=== PATIENT | male | born 1980 | race Caucasian/White ===

== ENCOUNTER 2017-09-16 12:28 | Emergency (ER) ==
[2017-09-16 12:44] VITALS: BP 137/87; TEMP 98.1; BMI 42.4
--- NOTE | 2017-09-16 13:55 | CT ---
EXAM: CT of the abdomen pelvis without contrast History: Diarrhea and abdominal pain, urinary tract infection. Comparison: CT abdomen pelvis 11/01/2013 Technique: Multiplanar CT images through the abdomen pelvis were obtained through the abdomen pelvis without the administration of IV contrast. Findings: 1 cm pleural based nodule within the left lower lobe. No acute osseous abnormalities. Sev ere degenerate changes of bilateral hip joints. Postsurgical changes of the spine again noted. Stab le chronic compression deformity at L3. Calcification seen within the lumbar spinal canal and there is suspected severe stenosis at multiple levels. Bilateral nephrolithiasis with largest stone on the right measuring 9 mm in largest conglomerate of s tones on the left measuring 1.4 cm. There is mild to moderate in the chronic hydronephrosis of the le ft kidney. No ureteral calculi. Vanegas catheter within the decompressed bladder. No discrete gallst ones identified by CT. No focal liver or splenic lesions. Atherosclerotic vascular calcifications. No peripancreatic inflammation. Adrenal glands are unremarkable. No bowel obstruction. The append ix is normal. Mild to moderate colonic stool. There is no obvious bowel wall thickening or adjacent inflammation. No free air and no ascites. 7.4 cm x 4.4 cm area of inflammation and phlegmonous change within the subcutaneous soft tissues of t he right buttock. Impression: 1. Mild to moderate chronic left hydronephrosis with no obstructing ureteral calculi identified. 2. Bilateral nephrolithiasis. 3. Vanegas catheter within the decompressed bladder. 4. No evidence for colitis and no bowel obstruction. 5. Scattered colonic stool. 6. Large area of inflammation and phlegmonous change within the subcutaneous soft tissues of the rig ht buttock consistent with infection. 6. Calcification within the lumbar spinal canal with severe spinal stenosis. 7. 1 cm left lower lobe pleural-based nodule could represent a focus of atelectasis or inflammation but cannot exclude a true lung nodule. Recommend follow-up chest CT in 3-6 months.
--- NOTE | 2017-09-16 14:31 | ED.PDOC ---
General ED Provider: Dr. PITA SHELLEY Chief Complaint: Diarrhea Stated Complaint: DIARRHEA AND WOUND OF THE RIGHT BUTTOCKS Time Seen by Physician: 12:43 (SEEN WITH STAFF) Mode of Arrival: Wheelchair Information Source: Patient Exam Limitations: No limitations Referred to ED by: Other (PT ALSO REPORTED OF ) Nursing and Triage Documentation Reviewed and Agree: Yes Does patient meet sepsis criteria?: Yes If yes, has appropriate treatment been initiated?: No System Inflammatory Response Syndrome: Not Applicable Sepsis Protocol: For patient's 13 years and over: Temp is 96.8 and below OR 101 and greater Pulse >90 BPM Resp >20/minute Acutely Altered Mental Status Are patient's symptoms suggestive of a new infection, such as: -Pneumonia -Skin, Soft Tissue -Endocarditis -UTI -Bone, Joint Infection -Implantable Device -Acute Abdominal Infection -Wound Infection -Meningitis -Blood Stream Catheter Infection -Unknown Skin Complaint Exam - Skin/Soft Tissue Complaint/Exam Onset/Duration: CHRONIC DIARRHEA , X MONTHS WAS ON C DIFF MEDS BUT PT STOPPED THEM Symptoms Are: Still present Timing: Intermittent Review of Systems - Review Of Systems Constitutional: Reports: No symptoms Eyes: Reports: No symptoms Ears, Nose, Mouth, Throat: Reports: No symptoms Respiratory: Reports: No symptoms Cardiac: Reports: No symptoms GI: Reports: Diarrhea, Rectal bleeding (IN THE PAST SMALL AMOUNT) : Reports: No symptoms Musculoskeletal: Reports: No symptoms Skin: Reports: No symptoms Neurological: Reports: No symptoms Endocrine: Reports: No symptoms Hematologic/Lymphatic: Reports: No symptoms All Other Systems: Reviewed and Negative Past Medical History - Past Medical History Previously Healthy: Yes Endocrine: Reports: None Cardiovascular: Reports: None Respiratory: Reports: None Hematological: Reports: None Gastrointestinal: Reports: Other (C DIFF POSTIVE IN THE PAST) Genitourinary: Reports: None Neuro/Psych: Reports: None Musculoskeletal: Reports: None Cancer: Reports: None - Surgical History General Surgical History: Reports: None - Family History Family History: Reports: None - Social History Smoking Status: Current every day smoker Hx Substance Use: No Alcohol Screening: None - Immunizations Tetanus Shot up to Date: Yes Physical Exam - Physical Exam Appearance: Well-appearing, No pain distress, Well-nourished Eyes: NISA, EOMI, Conjunctiva clear ENT: Ears normal, Nose normal, Oropharynx normal Respiratory: Airway patent, Breath sounds clear, Breath sounds equal, Respirations nonlabored Cardiovascular: RRR, Pulses normal, No rub, No murmur GI/: Soft, Nontender, No masses, Bowel sounds normal, No Organomegaly Musculoskeletal: Normal strength, ROM intact, No edema, No calf tenderness Skin: Warm, Dry (RASH AND 1CM ULCER RIGHT BUTTOCKS TENDER TO PALPATION) Neurological: Sensation intact, Motor intact, Reflexes intact, Cranial nerves intact, Alert, Oriented Psychiatric: Affect appropriate, Mood appropriate Interpretation - Radiology Interpretation Radiology Interpretation By: Radiologist Radiology Results: Positive (ABSCESS RIGHT BUTTOCKS) Physician Notification - Case Discussed Physician Notified: MERARY SERRANO Time of Notification: 14:35 Critical Care Note - Critical Care Note Total Time (mins): 0 Course - Course Hematology/Chemistry: 09/16/17 13:16 09/16/17 13:16 Orders, Labs, Meds: Lab Review 09/16/17 09/16/17 13:16 13:16 WBC 8.89 RBC 5.40 Hgb 15.9 Hct 46.9 MCV 86.9 MCH 29.4 MCHC 33.9 RDW Coeff of Micha 13.3 Plt Count 176 Immature Gran % (Auto) 0.2 Neut % (Auto) 70.5 Lymph % (Auto) 17.9 Nelson % (Auto) 10.0 Eos % (Auto) 1.0 Baso % (Auto) 0.4 Immature Gran # (Auto) 0.0 Neut # (Auto) 6.3 Lymph # (Auto) 1.6 Nelson # (Auto) 0.9 Eos # (Auto) 0.1 Baso # (Auto) 0.0 Sodium 137 Potassium 3.4 L Chloride 105 Carbon Dioxide 21 Anion Gap 14.4 BUN 8 Creatinine 0.75 Estimated GFR (MDRD) 119.00 BUN/Creatinine Ratio 10.66 Glucose 86 Calcium 9.1 Total Bilirubin 0.8 AST 16 ALT 13 Alkaline Phosphatase 61 Total Protein 6.5 Albumin 3.0 L Globulin 3.5 Albumin/Globulin Ratio 0.86 Orders Category Date Time Status C-DIFF MONITORING (NURSING) BID CARE 09/16/17 13:06 Active CBC W/ AUTO DIFF Stat LAB 09/16/17 13:16 Completed COMPREHENSIVE METABOLIC PANEL Stat LAB 09/16/17 13:16 Completed OCCULT BLOOD, STOOL Stat LAB 09/16/17 14:33 Uncollected c-diff [C. DIFFICILE] Routine LAB 09/16/17 13:[address] ABDOMEN/PELVIS WO CONTRAST Stat RADS 09/16/17 13:07 Completed Vital Signs: Temp Pulse Resp BP Pulse Ox 09/16/17 12:32 98.1 F 81 16 137/87 95 Departure - Departure Time of Disposition: 14:35 Disposition: TSF SHORT-TRM HOSP Discharge Problem: Diarrhea, Abscess of right buttock Instructions: Abscess (ED) Condition: Good Pt referred to PMD for follow-up: Yes IPMP verified?: No Additional Instructions: Please call your Family Physician as soon as possible to schedule a follow-up appointment. Allergies/Adverse Reactions: Allergies codeine Adverse Reaction (Verified 09/16/17 12:50) paroxetine HCl [From Paxil] Adverse Reaction (Verified 09/16/17 12:50) Home Medications: Ambulatory Orders Ibuprofen 400 mg PO Q4H PRN 11/01/13 Disposition Discussed With: Patient
== END 2017-09-16 14:47 | disposition short-term general hospital (02) ==
LOC: ED 12:28
DX: R19.7 Diarrhea, unspecified (principal); L02.31 Cutaneous abscess of buttock; F17.210 Nicotine dependence, cigarettes, uncomplicated
CPT/HCPCS: 36415; 80053; 82272; 85025; 87493; 99285

== ENCOUNTER 2017-09-27 21:59 | Inpatient (IN) ==
[2017-09-27] MEDS ORDERED: TORADOL IVP STA (22:43)
[2017-09-27] MEDS ORDERED: ZOFRAN 4 MG/2 ML IVP STA (22:43)
[2017-09-27] MEDS ORDERED: LEVAQUIN 500 MG in PREMIX 100 ML D5W 1 BAG IV STA (23:01)
--- NOTE | 2017-09-27 23:04 | ED.PDOC ---
General ED Provider: Dr. ALON CAMPA Chief Complaint: Scrotal Pain Stated Complaint: Patient states he has had right testicular swelling and pain for the past few days pain is worse today. Feels like he has been kicked, He is Parapleagic with BKA. He has chronic wounds and takes flagel for it. Time Seen by Physician: 22:20 Mode of Arrival: Wheelchair Information Source: Patient Exam Limitations: No limitations Nursing and Triage Documentation Reviewed and Agree: Yes Does patient meet sepsis criteria?: No If yes, has appropriate treatment been initiated?: No System Inflammatory Response Syndrome: Not Applicable Sepsis Protocol: For patient's 13 years and over: Temp is 96.8 and below OR 101 and greater Pulse >90 BPM Resp >20/minute Acutely Altered Mental Status Are patient's symptoms suggestive of a new infection, such as: -Pneumonia -Skin, Soft Tissue -Endocarditis -UTI -Bone, Joint Infection -Implantable Device -Acute Abdominal Infection -Wound Infection -Meningitis -Blood Stream Catheter Infection -Unknown Complaint Exam - Complaint/Exam Patient Complains of: Reports: Scrotal pain, Scrotal swelling, Groin pain Onset/Duration: 2 days ago Symptoms Are: Still present Timing: Constant Initial Severity: Moderate Current Severity: Severe Location of Pain: Reports: Right, Scrotum, Testicle Character: Reports: Sharp, Constant pressure, Cramping, Tearing Aggravating: Reports: None Alleviating: Reports: None Associated Signs and Symptoms: Reports: Nausea, Vomiting Last Voided: has a chronic medeiros catheter Testicular Torsion Risk Factors: Reports: None Surgical Obstruction Risk Factors: Reports: None Related Surgical History: Reports: None Abdominal Findings: Present: None Genitalia Exam: Present: Testes asymmetrical, Testes tender (on the right ), Scrotal swelling Differential Diagnoses: Epididymitis, Prostatitis, UTI Review of Systems - Review Of Systems Constitutional: Reports: Loss of appetite Ears, Nose, Mouth, Throat: Reports: No symptoms Respiratory: Reports: No symptoms Cardiac: Reports: No symptoms GI: Reports: Nausea, Vomiting : Reports: Other (scrotal pain ) Neurological: Reports: Anxiety All Other Systems: Reviewed and Negative Past Medical History - Past Medical History Previously Healthy: Yes Endocrine: Reports: None Cardiovascular: Reports: None Respiratory: Reports: None Hematological: Reports: None Gastrointestinal: Reports: GERD, Other (C DIFF POSTIVE IN THE PAST) Genitourinary: Reports: Kidney stones Neuro/Psych: Reports: None Musculoskeletal: Reports: None Cancer: Reports: None Other Pertinent Past Medical History: osteopenia, Osteoporosis, Neurogenic bladder with chronic indwelling cath - Surgical History General Surgical History: Reports: Orthopedic (Bilateral AKA, left hip), Back Surgery, Other (Skin grafts ) - Family History Family History: Reports: None - Social History Smoking Status: Current every day smoker Hx Substance Use: No Alcohol Screening: None - Immunizations Tetanus Shot up to Date: Yes Physical Exam - Physical Exam Appearance: Ill-appearing Ill-appearing: Moderate Pain Distress: Severe Neck: Supple Respiratory: Airway patent, Breath sounds clear, Breath sounds equal, Respirations nonlabored Cardiovascular: RRR, Pulses normal, No rub, No murmur GI/: Soft, No masses, Bowel sounds normal, No Organomegaly, Tender (right scrotum ) Musculoskeletal: Normal strength, ROM intact, No edema, No calf tenderness Skin: Warm, Dry, Normal color Neurological: Sensation intact, Motor intact, Reflexes intact Psychiatric: Anxious Re-Evaluation - Re-Evaluation Time of Re-Evaluation: 00:26 Status: Improved (only slightly ) Pain Level: 7/10 Physician Notification - Case Discussed Physician Notified: Dr Collazo Time of Notification: 00:27 (ok to admit with pain medications and antibiotics. Order US for AM) Critical Care Note - Critical Care Note Total Time (mins): 0 Course - Course Orders, Labs, Meds: Lab Review 09/27/17 23:28 Urine Color Yellow Urine Clarity Cloudy Urine pH 6.5 Ur Specific [place] 1.010 Urine Protein 1+ Urine Glucose (UA) Negative Urine Ketones Trace Urine Blood 1+ Urine Nitrite Positive Urine Bilirubin Negative Urine Urobilinogen 0.2 Ur Leukocyte Esterase 2+ Urine Microscopic RBC 5-10 Urine Microscopic WBC 30-50 Ur Squamous Epith Cells 5-10 Urine Bacteria 2+ Urine Mucus 1+ Orders Category Date Time Status ACTIVITY .BR with BRP CARE 09/28/17 00:05 Active CATHETER INSERTION AND CARE Q8HR CARE 09/28/17 00:05 Active INCISION/WOUND CARE Q12HR CARE 09/28/17 00:05 Active INTAKE & OUTPUT Q8HR CARE 09/28/17 00:05 Active REMINDER: Ask MD to d/c medeiros DAILY CARE 09/28/17 00:14 Active VITAL SIGNS Q4HR CARE 09/28/17 00:05 Active REGULAR DIET DIETARY 09/28/17 Breakfast Ordered ED IV/MEDIPORT/POWERPORT .ONCE EMERGENCY 09/27/17 22:43 Active CBC W/ AUTO DIFF DAILY@0600 LAB 09/28/17 06:00 Ordered CBC W/ AUTO DIFF DAILY@0600 LAB 09/29/17 06:00 Ordered CBC W/ AUTO DIFF Stat LAB 09/28/17 00:05 Ordered COMPREHENSIVE METABOLIC PANEL Stat LAB 09/28/17 00:05 Ordered URINALYSIS C & S IF INDICATED Stat LAB 09/27/17 23:28 Completed URINE CULTURE Stat LAB 09/27/17 23:28 Received 0.9 % Sodium Chloride [Saline Flush] MEDS 09/27/17 22:43 Ordered 1 syr IVF PRN PRN Acetaminophen [Tylenol] MEDS 09/28/17 00:05 Ordered 650 mg PO Q4H PRN Hydromorphone HCl/Pf [Dilaudid 2 mg/ml Syringe] MEDS 09/28/17 00:05 Ordered 1 mg IVP Q4H PRN Hydromorphone HCl/Pf [Dilaudid 2 mg/ml Syringe] MEDS 09/27/17 23:09 Discontinued 1.5 mg IVP ONCE STA Ibuprofen [Motrin] MEDS 09/28/17 00:19 Ordered 600 mg PO Q8H PRN Ketorolac Tromethamine [Toradol] MEDS 09/27/17 22:43 Discontinued 30 mg IVP ONCE STA Levofloxacin/D5w [Levaquin] 100 ml MEDS 09/27/17 23:05 Discontinued IV .STK-MED Levofloxacin/D5w [Levaquin] 500 mg MEDS 09/28/17 09:00 Ordered Premix 100 ml D5w 1 bag IV DAILY Levofloxacin/D5w [Levaquin] 500 mg MEDS 09/27/17 23:01 Discontinued Premix 100 ml D5w 1 bag IV ONCE Meperidine HCl/Pf [Demerol 25 mg/ml Vial] MEDS 09/28/17 00:17 Discontinued 25 mg .ROUTE .STK-MED ONE Meperidine HCl/Pf [Demerol 25 mg/ml Vial] MEDS 09/28/17 00:05 Discontinued 25 mg IVP ONCE STA Metronidazole [Flagyl] MEDS 09/28/17 09:00 Ordered 250 mg PO QID Ondansetron HCl/Pf [Zofran 4 mg/2 ml] MEDS 09/27/17 22:43 Discontinued 4 mg IVP ONCE STA Ondansetron HCl/Pf [Zofran 4 mg/2 ml] MEDS 09/28/17 00:05 Ordered 4 mg IVP Q6H PRN Oxycodone-Acetaminophen 5-325 [Percocet 5-325] MEDS 09/28/17 00:05 Ordered 1 tab PO Q6H PRN Potassium Chloride in 0.9%NaCl [Sodium Chloride 0.9%- MEDS 09/28/17 00:30 Ordered KCl 20 Meq] 1,000 ml IV 125 mls/hr Promethazine HCl [Phenergan 25 mg/ml Vial] MEDS 09/28/17 00:06 Discontinued 25 mg .ROUTE .STK-MED ONE Promethazine HCl [Phenergan 25 mg/ml Vial] 25 mg MEDS 09/28/17 00:04 Active 0.9 % Sodium Chloride [Sodium Chloride] 50 ml IV ONCE RESUSCITATION STATUS Routine OTHERS 09/28/17 00:05 Ordered U/S SCROTUM Stat RADS 09/28/17 00:25 Ordered Medications Generic Name Dose Route Start Last Admin Trade Name Freq PRN Reason Stop Dose Admin Acetaminophen 650 mg 09/28/17 00:05 Tylenol PO Q4H PRN Mild pain Hydromorphone HCl 1 mg 09/28/17 00:05 Dilaudid 2 Mg/Ml Syringe IVP Q4H PRN Severe Pain Promethazine HCl 25 mg/ Sodium 51 mls @ 75 mls/hr 09/28/17 00:04 09/28/17 00: 23 Chloride IV 09/28/17 00:44 75 mls/hr ONCE STA Administration Potassium Chloride/Sodium Chloride 1,000 mls @ 125 mls/hr 09/28/17 00:30 Sodium Chloride 0.9%-Kcl 20 Meq IV .Q8H AUBRIE Levofloxacin/Dextrose 500 mg/ 100 mls @ 100 mls/hr 09/28/17 09:00 Dextrose IV DAILY AUBRIE Ibuprofen 600 mg 09/28/17 00:19 Motrin PO Q8H PRN Mild Pain Non-Formulary Medication 250 mg 09/28/17 09:00 Metronidazole [Flagyl] PO QID AUBRIE Ondansetron HCl 4 mg 09/28/17 00:05 Zofran 4 Mg/2 Ml IVP Q6H PRN Nausea / Vomiting Oxycodone/Acetaminophen 1 tab 09/28/17 00:05 Percocet 5-325 PO Q6H PRN Moderate pain. Sodium Chloride 1 syr 09/27/17 22:43 Saline Flush IVF PRN PRN To flush IV Discontinued Medications Generic Name Dose Route Start Last Admin Trade Name Freq PRN Reason Stop Dose Admin Hydromorphone HCl 1.5 mg 09/27/17 23:09 09/27/17 23:13 Dilaudid 2 Mg/Ml Syringe IVP 09/27/17 23:10 1.5 mg ONCE STA Administration Levofloxacin/Dextrose 500 mg/ 100 mls @ 100 mls/hr 09/27/17 23:01 09/27/17 23 :11 Dextrose IV 09/28/17 00:00 100 mls/hr ONCE STA Administration Ketorolac Tromethamine 30 mg 09/27/17 22:43 09/27/17 22:59 Toradol IVP 09/27/17 22:44 30 mg ONCE STA Administration Meperidine HCl 25 mg 09/28/17 00:05 09/28/17 00:23 Demerol 25 Mg/Ml Vial IVP 09/28/17 00:06 25 mg ONCE STA Administration Ondansetron HCl 4 mg 09/27/17 22:43 09/27/17 22:59 Zofran 4 Mg/2 Ml IVP 09/27/17 22:44 4 mg ONCE STA Administration Vital Signs: Temp Pulse Resp BP Pulse Ox 09/27/17 22:00 99 F 88 20 139/75 97 Departure - Departure Time of Disposition: 00:02 Disposition: HOME SELF-CARE Discharge Problem: Acute epididymitis, UTI (urinary tract infection), bacterial Instructions: Epididymo-Orchitis (ED), Testicle Pain (ED) Condition: Stable Pt referred to PMD for follow-up: Yes IPMP verified?: No Additional Instructions: Take medications as prescribed Follow up with PCP in 3 days Prescriptions: Hydrocodone/Acetaminophen [Rolfe 5-325 Tablet] 1 tab PO Q6HR PRN #15 tablet PRN Reason: PAIN Levofloxacin [Levaquin] 500 mg PO DAILY #10 tablet Allergies/Adverse Reactions: Allergies codeine Adverse Reaction (Verified 09/27/17 22:11) Hives paroxetine HCl [From Paxil] Adverse Reaction (Verified 09/27/17 22:11) Difficulty Swallowing UNABLE TO ANSWER/ARMS DRAW IN/UNABLE TO SWALLOW Home Medications: Ambulatory Orders Ibuprofen 400 mg PO Q4H PRN 11/01/13 Hydrocodone/Acetaminophen [Rolfe 5-325 Tablet] 1 tab PO Q6HR PRN #15 tablet Levofloxacin [Levaquin] 500 mg PO DAILY #10 tablet 09/27/17 Metronidazole [Flagyl] 250 mg PO QID 09/27/17 Oxycodone-Acetaminophen 10-325 [Percocet 10-325] 10 - 325 mg PO DAILY 09/27/17 Disposition Discussed With: Patient
[2017-09-27] MEDS ORDERED: LEVAQUIN 100 ML IV ONE (23:05)
[2017-09-27] MEDS ORDERED: DILAUDID 2 MG/ML SYRINGE IVP STA (23:09)
[2017-09-28] MEDS ORDERED: PHENERGAN 25 MG/ML VIAL 25 MG in SODIUM CHLORIDE 50 ML IV STA (00:04)
[2017-09-28] MEDS ORDERED: DILAUDID 2 MG/ML SYRINGE IVP PRN ×2 (00:05→08:47)
[2017-09-28] MEDS ORDERED: PERCOCET 5-325 PO PRN (00:05)
[2017-09-28] MEDS ORDERED: DEMEROL 25 MG/ML VIAL IVP STA (00:05)
[2017-09-28] MEDS ORDERED: TYLENOL PO PRN (00:05)
[2017-09-28] MEDS ORDERED: PHENERGAN 25 MG/ML VIAL ONE (00:06)
[2017-09-28] MEDS ORDERED: DEMEROL 25 MG/ML VIAL ONE (00:17)
[2017-09-28] MEDS ORDERED: MOTRIN PO PRN (00:19)
[2017-09-28 02:51] VITALS: BMI 35.5
[2017-09-28] MEDS ORDERED: NORCO 5-325 ONE (03:18)
[2017-09-28] MEDS: SODIUM CHLORIDE 0.9%-KCL 20 MEQ 1,000 ML IV SCH ×2 (03:26→14:21)
[2017-09-28] MEDS ORDERED: DILAUDID 2 MG/ML SDV ONE (08:08)
[2017-09-28] MEDS: VANCOMYCIN 1 GM in SODIUM CHLORIDE 250 ML IV SCH ×2 (08:10→21:14)
--- NOTE | 2017-09-28 08:39 | US ---
EXAM: Scrotal ultrasound. History: Right testicular pain. Technique: Multiple sonographic images through the scrotum were obtained. Color duplex Doppler was used to interrogate vascular flow. Findings: The right testicle measures 4 cm x 2.5 cm x 2.8 cm and demonstrates heterogeneous echotexture without focal mass lesion identified. Right epididymis is enlarged and hyperemic. 2 cm complex right epidi dymal cyst or abscess. Moderate right hydrocele with debris. Left testicle measures 4.2 cm x 3.1 cm x 3.0 cm. Blood flow was documented within the left testicle. No left intratesticular masses are identified. Moderate complex left hydrocele with debris and sep tations. The left epididymis is not hyperemic. 7 mm left epididymal cyst. Impression: 1. Right epididymitis. 2. Moderate sized complex bilateral hydroceles.
[2017-09-28] MEDS ORDERED: VANCOMYCIN 1 GM in SODIUM CHLORIDE 250 ML IV SCH (09:00)
[2017-09-28] MEDS ORDERED: FLAGYL PO SCH (09:00)
[2017-09-28] MEDS ORDERED: METRONIDAZOLE 250 MG PO SCH (09:00)
[2017-09-28] MEDS ORDERED: DECADRON 4 MG/ML SDV IVP STA ×2 (09:18→09:54)
[2017-09-28] MEDS ORDERED: BENADRYL 50 MG in SODIUM CHLORIDE 100 ML IV STA (09:18)
[2017-09-28] MEDS ORDERED: BENADRYL ONE (09:22)
--- NOTE | 2017-09-28 09:29 | CT ---
EXAM: CT pelvis with and without contrast. HISTORY: Decubitus ulcer. Assess for wound extension. COMPARISON: 09/16/2017, 11/01/2013. TECHNIQUE: Multiple axial images of the abdomen and pelvis were obtained prior to and following intr avenous administration of 75 mL of Omnipaque 350, low osmolar. Images reformatted in the sagittal an d coronal plane. FINDINGS: Coalescent fluid and soft tissue seen in the subcutaneous tissues of the inferior right gl uteal region extending towards the right ischial tuberosity. Some internal air noted within the deep er portion of this collection on coronal postcontrast images 40 and 48 collection is identified. The cortical margins of the adjacent ischial tuberosity appear intact. Scrotal edema and bilateral hydr oceles noted although no subcutaneous air or significant inflammation is seen by CT at this level. T here is no extension of these inflammatory process into the peritoneum. Visualized bowel is normal in caliber without evidence for obstruction. Vanegas catheter present with tip in the urinary bladder. The balloon is either within the inferior bladder at level of previous t ransurethral prostate resection versus within the prostate itself. No free intraperitoneal fluid or free air identified. No lymphadenopathy detected. Atherosclerotic calcifications are present. There has been previous internal fixation of the right femur. Advanced osteoarthritic changes of the hips noted with degenerative changes of the pubic symphysis, lower lumbar spine and sacroiliac joint s incompletely imaged. Previous posterior lumbar fusion changes are partially imaged. IMPRESSION: 1. Enlargement of right decubitus ulcer in the inferior right gluteal region extending to the right ischial tuberosity with internal air consistent with superimposed infection. No landon osteomyelitis. 2. Scrotal edema and bilateral hydroceles without definite involvement from #1 above. 3. Vanegas catheter balloon inflated either within an area of previous transurethral prostate resectio n (if previously performed) or within the prostate itself. The bladder is collapsed.
[2017-09-28] MEDS ORDERED: BENADRYL IVP STA (09:30)
[2017-09-28] MEDS ORDERED: PHENERGAN 25 MG/ML VIAL 12.5 MG in SODIUM CHLORIDE 50 ML IV STA (09:54)
[2017-09-28] MEDS ORDERED: ZANTAC IVP STA (09:55)
[2017-09-28] MEDS ORDERED: PEPCID IVP STA (10:15)
[2017-09-28] MEDS ORDERED: ZOSYN 3.375 GM 3.375 GM in SODIUM CHLORIDE 50 ML IV SCH (12:00)
[2017-09-28] MEDS: PRIMAXIN 500 MG in SODIUM CHLORIDE 100 ML IV SCH ×2 (14:22→17:24)
[2017-09-28] MEDS: DILAUDID 2 MG/ML SDV IVP PRN ×4 (14:23→23:03)
[2017-09-28] MEDS ORDERED: LEVAQUIN 500 MG in PREMIX 100 ML D5W 1 BAG IV SCH (21:00)
[2017-09-28] MEDS: XOPENEX 1.25 MG NEB SCH (22:29)
[2017-09-29] MEDS: PRIMAXIN 500 MG in SODIUM CHLORIDE 100 ML IV SCH ×4 (00:55→17:53)
[2017-09-29] MEDS: PERCOCET 10-325 PO PRN (01:04)
[2017-09-29] MEDS: DILAUDID 2 MG/ML SDV IVP PRN ×5 (03:29→21:32)
[2017-09-29] MEDS: XOPENEX 1.25 MG NEB SCH ×4 (04:53→22:25)
[2017-09-29] MEDS: SODIUM CHLORIDE 0.9%-KCL 20 MEQ 1,000 ML IV SCH ×3 (08:39→08:52)
[2017-09-29] MEDS: VANCOMYCIN 1 GM in SODIUM CHLORIDE 250 ML IV SCH ×2 (08:50→21:05)
[2017-09-29] MEDS: ZOFRAN 4 MG/2 ML IVP PRN (21:42)
[2017-09-30] MEDS: PRIMAXIN 500 MG in SODIUM CHLORIDE 100 ML IV SCH ×4 (01:29→18:35)
[2017-09-30] MEDS: DILAUDID 2 MG/ML SDV IVP PRN ×5 (02:43→21:06)
[2017-09-30] MEDS: XOPENEX 1.25 MG NEB SCH ×4 (04:47→22:58)
[2017-09-30] MEDS: VANCOMYCIN 1 GM in SODIUM CHLORIDE 250 ML IV SCH ×2 (10:32→20:32)
[2017-09-30] MEDS: SODIUM CHLORIDE 0.9%-KCL 20 MEQ 1,000 ML IV SCH ×2 (10:33)
[2017-09-30] MEDS: NYSTATIN ORAL SUSP PO SCH ×3 (11:11→20:30)
[2017-09-30] MEDS: ZOFRAN 4 MG/2 ML IVP PRN (11:11)
[2017-09-30] MEDS: PERCOCET 10-325 PO PRN ×2 (12:59→18:36)
[2017-09-30] MEDS: ATIVAN PO SCH (20:30)
[2017-10-01] MEDS: PERCOCET 10-325 PO PRN ×4 (00:19→23:50)
[2017-10-01] MEDS: PRIMAXIN 500 MG in SODIUM CHLORIDE 100 ML IV SCH ×5 (00:30→23:46)
[2017-10-01] MEDS: DILAUDID 2 MG/ML SDV IVP PRN ×3 (01:14→17:12)
[2017-10-01] MEDS: XOPENEX 1.25 MG NEB SCH (04:50)
[2017-10-01] MEDS: NYSTATIN ORAL SUSP PO SCH ×4 (05:34→23:44)
[2017-10-01] MEDS: ZOFRAN 4 MG/2 ML IVP PRN (05:34)
[2017-10-01] MEDS ORDERED: XOPENEX 1.25 MG NEB PRN (09:44)
[2017-10-01] MEDS ORDERED: ZANTAC PO STA (10:52)
[2017-10-01] MEDS: CARAFATE PO SCH ×3 (11:01→23:43)
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
[2017-10-01] MEDS: ZANTAC PO SCH (17:03)
[2017-10-01] MEDS: SODIUM CHLORIDE 0.9%-KCL 20 MEQ 1,000 ML IV SCH (20:37)
[2017-10-01] MEDS: ATIVAN PO SCH (23:43)
[2017-10-02] MEDS: PRIMAXIN 500 MG in SODIUM CHLORIDE 100 ML IV SCH ×2 (05:58→11:47)
[2017-10-02] MEDS: NYSTATIN ORAL SUSP PO SCH ×2 (05:59→10:26)
[2017-10-02] MEDS: ZANTAC PO SCH (06:00)
[2017-10-02] MEDS: CARAFATE PO SCH ×2 (06:00→10:26)
[2017-10-02] MEDS: DILAUDID 2 MG/ML SDV IVP PRN (06:53)
[2017-10-02] MEDS: ZOFRAN 4 MG/2 ML IVP PRN (07:52)
[2017-10-02] MEDS: PERCOCET 10-325 PO PRN ×2 (08:38→12:35)
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
[2017-10-02 09:45] VITALS: BP 145/99; TEMP 99
--- NOTE | 2017-10-02 17:23 | PCM.HOSP ---
- Initial Hospital Care [id number] 70 Minutes Bedside ([id number]): 09/28 - Subsequent Care [id number] 25 Minutes per Day ([id number]): 10/01 [id number] 35 Minutes per Day ([id number]): 09/29. 09/30 - Hospital Discharge [id number] More than 30 Minutes ([id number]): 10/02
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
== END 2017-10-02 13:20 | disposition home or self-care (01) | DRG 729 ==
LOC: ED 21:59 → MEDSURG A 09-28 00:34
PROVIDERS: ADMIT Emergency Medicine; ATTEND Emergency Medicine
DX: N50.89 Other specified disorders of the male genital organs (principal); G82.20 Paraplegia, unspecified; N39.0 Urinary tract infection, site not specified; K61.3 Ischiorectal abscess; R10.30 Lower abdominal pain, unspecified; R11.2 Nausea with vomiting, unspecified; R63.0 Anorexia; R33.9 Retention of urine, unspecified; F41.9 Anxiety disorder, unspecified; N45.1 Epididymitis; N45.2 Orchitis; N31.9 Neuromuscular dysfunction of bladder, unspecified; L89.309 Pressure ulcer of unspecified buttock, unspecified stage; L89.319 Pressure ulcer of right buttock, unspecified stage; D64.9 Anemia, unspecified
CPT/HCPCS: 36415; 80053; 80202; 81001; 85025; 87070; 87081; 87086; 87186; 94640; 96365; 96366; 96375; 97802; 99284

== ENCOUNTER 2017-11-21 15:37 | Outpatient (CLI) | END 2017-11-21 15:38 | disposition home or self-care (01) | LOC: LAB 15:37 | PROVIDERS: ATTEND Internal Medicine Infectious Disease | DX: L89.319 Pressure ulcer of right buttock, unspecified stage (principal); M86.9 Osteomyelitis, unspecified | CPT/HCPCS: 36415; 80053; 85025; 85651; 86140 ==

== ENCOUNTER 2017-11-29 11:23 | Outpatient (CLI) ==
--- NOTE | 2017-11-29 12:09 | DI ---
EXAM: Two views of the chest. History: Right PICC placement. Comparison: None available. Findings: Heart size is normal. No focal consolidation. No appreciable pleural fluid and no pneumo thorax. Tip of right PICC is at the cavoatrial junction. No acute osseous abnormalities. Impression: Tip of right PICC is at the cavoatrial junction. No pneumothorax.
== END 2017-11-29 11:24 | disposition home or self-care (01) ==
LOC: LAB 11:23
PROVIDERS: ATTEND Family Medicine
DX: Z51.81 Encounter for therapeutic drug level monitoring (principal); Z95.828 Presence of other vascular implants and grafts
CPT/HCPCS: 80306

== ENCOUNTER 2018-02-12 23:28 | Emergency (ER) ==
[2018-02-12 23:39] VITALS: BMI 38.5
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
--- NOTE | 2018-02-13 01:18 | ED.PDOC ---
General ED Provider: Dr. STEWART PATTERSON-ER Chief Complaint: Fever Stated Complaint: my temp is up and i think i have a stone Time Seen by Physician: 23:30 Mode of Arrival: Walk-In Information Source: Patient Exam Limitations: No limitations Primary Care Provider: SHANNON LEMOS Nursing and Triage Documentation Reviewed and Agree: Yes Does patient meet sepsis criteria?: No System Inflammatory Response Syndrome: Not Applicable Sepsis Protocol: For patient's 13 years and over: Temp is 96.8 and below OR 101 and greater Pulse >90 BPM Resp >20/minute Acutely Altered Mental Status Are patient's symptoms suggestive of a new infection, such as: -Pneumonia -Skin, Soft Tissue -Endocarditis -UTI -Bone, Joint Infection -Implantable Device -Acute Abdominal Infection -Wound Infection -Meningitis -Blood Stream Catheter Infection -Unknown Complaint Exam - Complaint/Exam Patient Complains of: Reports: Dysuria Symptoms Are: Still present Initial Severity: Mild Current Severity: Moderate Character: Reports: Sharp, Burning Aggravating: Reports: None Alleviating: Reports: None Associated Signs and Symptoms: Reports: Fever, Dysuria Differential Diagnoses: UTI Review of Systems - Review Of Systems Constitutional: Reports: Chills, Fever Eyes: Reports: No symptoms Ears, Nose, Mouth, Throat: Reports: No symptoms Respiratory: Reports: No symptoms Cardiac: Reports: No symptoms GI: Reports: No symptoms : Reports: No symptoms Musculoskeletal: Reports: No symptoms Skin: Reports: No symptoms Neurological: Reports: No symptoms Endocrine: Reports: No symptoms Hematologic/Lymphatic: Reports: No symptoms All Other Systems: Reviewed and Negative Past Medical History - Past Medical History Previously Healthy: Yes Endocrine: Reports: None Cardiovascular: Reports: None Respiratory: Reports: None Hematological: Reports: None Gastrointestinal: Reports: GERD, Other (C DIFF POSTIVE IN THE PAST) Genitourinary: Reports: Kidney stones Neuro/Psych: Reports: None Musculoskeletal: Reports: None Cancer: Reports: None Other Pertinent Past Medical History: osteopenia, Osteoporosis, Neurogenic bladder with chronic indwelling cath - Surgical History General Surgical History: Reports: Orthopedic (Bilateral AKA, left hip), Back Surgery, Other (Skin grafts ) - Family History Family History: Reports: None - Social History Smoking Status: Current every day smoker, Heavy tobacco smoker Hx Substance Use: No Alcohol Screening: None - Immunizations Tetanus Shot up to Date: Yes Physical Exam - Physical Exam Appearance: Well-appearing Pain Distress: Moderate Eyes: NISA, EOMI, Conjunctiva clear ENT: Ears normal, Nose normal, Oropharynx normal Neck: Supple Respiratory: Airway patent, Breath sounds clear, Breath sounds equal, Respirations nonlabored Cardiovascular: RRR, Pulses normal, No rub, No murmur GI/: Soft, Nontender, No masses, Bowel sounds normal, No Organomegaly Musculoskeletal: Normal strength Skin: Warm, Dry, Normal color Neurological: Sensation intact, Motor intact, Reflexes intact, Cranial nerves intact, Alert, Oriented Psychiatric: Affect appropriate, Mood appropriate Interpretation - Radiology Interpretation Radiology Interpretation By: Radiologist Radiology Results: Positive Exam Interpreted: CT Scan Physician Notification - Case Discussed Physician Notified: dr baldwin and dr juarez accept---wash u Time of Notification: 02:30 Critical Care Note - Critical Care Note Total Time (mins): 45 Course - Course Hematology/Chemistry: 02/13/18 00:00 02/13/18 00:00 Orders, Labs, Meds: Lab Review 02/13/18 02/13/18 02/13/18 00:00 00:00 00:00 WBC 19.16 H RBC 4.84 Hgb 11.7 L Hct 38.4 L MCV 79.3 L MCH 24.2 L MCHC 30.5 L RDW Coeff of Micha 14.7 Plt Count 369 Immature Gran % (Auto) 0.5 Neut % (Auto) 90.0 Lymph % (Auto) 4.3 L [place] % (Auto) 4.3 Eos % (Auto) 0.7 Baso % (Auto) 0.2 Immature Gran # (Auto) 0.1 Neut # (Auto) 17.2 H Lymph # (Auto) 0.8 [place] # (Auto) 0.8 Eos # (Auto) 0.1 Baso # (Auto) 0.0 ESR 79 H Sodium 132.6 L Potassium 4.48 Chloride 97.4 L Carbon Dioxide 27.9 Anion Gap 11.78 BUN 18.7 Creatinine 2.59 H Estimated GFR (MDRD) 28.00 BUN/Creatinine Ratio 7.22 Glucose 114.7 H Lactic Acid Calcium 9.25 Total Bilirubin 0.59 AST 34.5 ALT 14.1 Alkaline Phosphatase 104.8 Total Protein 8.48 H Albumin 4.01 Globulin 4.47 Albumin/Globulin Ratio 0.89 Procalcitonin Urine Color Urine Clarity Urine pH Ur Specific [place] Urine Protein Urine Glucose (UA) Urine Ketones Urine Blood Urine Nitrite Urine Bilirubin Urine Urobilinogen Ur Leukocyte Esterase Urine Microscopic RBC Urine Microscopic WBC Ur Squamous Epith Cells Calcium Oxalate Crystal Triple Phos Crystals Amorphous Sediment Urine Bacteria 02/13/18 02/13/18 02/13/18 00:00 00:00 00:25 WBC RBC Hgb Hct MCV MCH MCHC RDW Coeff of [place] Plt Count Immature Gran % (Auto) Neut % (Auto) Lymph % (Auto) [place] % (Auto) Eos % (Auto) Baso % (Auto) Immature Gran # (Auto) Neut # (Auto) Lymph # (Auto) [place] # (Auto) Eos # (Auto) Baso # (Auto) ESR Sodium Potassium Chloride Carbon Dioxide Anion Gap BUN Creatinine Estimated GFR (MDRD) BUN/Creatinine Ratio Glucose Lactic Acid 2.07 Calcium Total Bilirubin AST ALT Alkaline Phosphatase Total Protein Albumin Globulin Albumin/Globulin Ratio Procalcitonin 2.40 Urine Color Yellow Urine Clarity Cloudy Urine pH 7.0 Ur Specific [place] 1.010 Urine Protein Negative Urine Glucose (UA) Negative Urine Ketones Negative Urine Blood 2+ Urine Nitrite Negative Urine Bilirubin Negative Urine Urobilinogen 0.2 Ur Leukocyte Esterase 2+ Urine Microscopic RBC 10-20 Urine Microscopic WBC 50-100 Ur Squamous Epith Cells 5-10 Calcium Oxalate Crystal Trace Triple Phos Crystals Trace Amorphous Sediment Trace Urine Bacteria 1+ Orders Category Date Time Status ED IV/MEDIPORT/POWERPORT .ONCE EMERGENCY 02/13/18 01:22 Active BLOOD CULTURE (ED ONLY) Stat LAB 02/12/18 Received CBC W/ AUTO DIFF Stat LAB 02/12/18 23:46 Completed COMPREHENSIVE METABOLIC PANEL Stat LAB 02/12/18 23:46 Completed ESR Stat LAB 02/12/18 23:47 Completed LACTIC ACID Stat LAB 02/12/18 23:47 Completed PROCALCITONIN Stat LAB 02/12/18 Completed URINALYSIS C & S IF INDICATED Stat LAB 02/13/18 00:25 Completed URINE CULTURE Stat LAB 02/13/18 00:25 Received 0.9 % Sodium Chloride [Saline Flush] MEDS 02/13/18 01:22 Ordered 1 syr IVF PRN PRN Aztreonam [Azactam] MEDS 02/13/18 01:36 Discontinued 1 gm .ROUTE .STK-MED ONE Aztreonam [Azactam] 0.5 gm MEDS 02/13/18 01:22 Discontinued 0.9 % Sodium Chloride [Sodium Chloride] 50 ml IV ONCE Hydromorphone HCl [Dilaudid 0.5 mg/0.5 ml Syringe] MEDS 02/13/18 01:22 Discontinued 0.5 mg IVP ONCE STA Hydromorphone HCl [Dilaudid 1 mg/ml Syringe] MEDS 02/13/18 02:18 Discontinued 1 mg IVP ONCE STA Sodium Chloride 0.9% [Sodium Chloride] 1,000 ml MEDS 02/13/18 01:27 Active IV 100 mls/hr CT ABD/PEL WO RENAL STONE PROT Stat RADS 02/13/18 00:[address] ABDOMEN/PELVIS WO CONTRAST Stat RADS 02/12/18 23:[address] CHEST W/O CONTRAST Stat RADS 02/13/18 00:01 Completed Medications Generic Name Dose Route Start Last Admin Trade Name Freq PRN Reason Stop Dose Admin Sodium Chloride 1,000 mls @ 100 mls/hr 02/13/18 01:27 02/13/18 01:34 Sodium Chloride IV 02/13/18 11:26 100 mls/hr .Q10H STA Administration Sodium Chloride 1 syr 02/13/18 01:22 02/13/18 01:51 Saline Flush IVF 1 syr PRN PRN Administration To flush IV Discontinued Medications Generic Name Dose Route Start Last Admin Trade Name Freq PRN Reason Stop Dose Admin Hydromorphone HCl 0.5 mg 02/13/18 01:22 02/13/18 01:49 Dilaudid 0.5 Mg/0.5 Ml Syringe IVP 02/13/18 01:23 0.5 mg ONCE STA Administration Hydromorphone HCl 1 mg 02/13/18 02:18 Dilaudid 1 Mg/Ml Syringe IVP 02/13/18 02:19 ONCE STA Aztreonam 0.5 gm/ Sodium 50 mls @ 75 mls/hr 02/13/18 01:22 02/13/18 01:52 Chloride IV 02/13/18 02:01 75 mls/hr ONCE STA Administration Vital Signs: Temp Pulse Resp BP Pulse Ox 02/12/18 23:29 101.7 F H 132 H 28 H 128/87 99 Departure - Departure Time of Disposition: 01:18 Disposition: TSF SHORT-TRM HOSP Discharge Problem: UTI (urinary tract infection), bacterial Hydronephrosis Qualifiers: Hydronephrosis type: with renal calculous obstruction Qualified Code(s): N13.2 - Hydronephrosis with renal and ureteral calculous obstruction Instructions: Ureteral Stones (ED) Condition: Stable Pt referred to PMD for follow-up: No IPMP verified?: No Allergies/Adverse Reactions: Allergies morphine Adverse Reaction (Intermediate, Verified 02/12/18 23:40) Hives vancomycin Adverse Reaction (Intermediate, Verified 02/12/18 23:40) Red Man's Syndrome Vanc 1g/250ml started at 125ml/hr, red man's syndrome. stopped and restarted at 62ml/hr and tolerated fine. codeine Adverse Reaction (Verified 02/12/18 23:40) Hives paroxetine HCl [From Paxil] Adverse Reaction (Verified 02/12/18 23:40) Difficulty Swallowing UNABLE TO ANSWER/ARMS DRAW IN/UNABLE TO SWALLOW Home Medications: Ambulatory Orders Ibuprofen 600 mg PO Q6HR PRN 02/12/18 Transfer Form Completed: Yes Disposition Discussed With: Patient
[2018-02-13] MEDS ORDERED: DILAUDID 0.5 MG/0.5 ML SYRINGE IVP STA (01:22)
[2018-02-13] MEDS ORDERED: AZACTAM 0.5 GM in SODIUM CHLORIDE 50 ML IV STA (01:22)
[2018-02-13] MEDS ORDERED: SODIUM CHLORIDE 1,000 ML IV STA (01:27)
[2018-02-13] MEDS ORDERED: AZACTAM ONE (01:36)
[2018-02-13] MEDS ORDERED: DILAUDID 1 MG/ML SYRINGE IVP STA (02:18)
[2018-02-13 02:47] VITALS: BP 106/70; TEMP 100.5
== END 2018-02-13 03:30 | disposition short-term general hospital (02) ==
LOC: ED 23:28
DX: N39.0 Urinary tract infection, site not specified (principal); B96.5 Pseudomonas (aeruginosa) (mallei) (pseudomallei) as the cause of diseases classified elsewhere; N13.2 Hydronephrosis with renal and ureteral calculous obstruction; Z96.0 Presence of urogenital implants; Z87.442 Personal history of urinary calculi; F17.210 Nicotine dependence, cigarettes, uncomplicated
CPT/HCPCS: 36415; 74176; 80053; 81001; 83605; 84145; 85025; 85651; 87040; 87070; 87086; 87186; 96365; 96375; 96376; 99285

== ENCOUNTER 2018-04-24 13:15 | Emergency (ER) ==
[2018-04-24 13:31] VITALS: BMI 36.1
[2018-04-24] MEDS ORDERED: LACTATED RINGERS 1,000 ML IV STA ×2 (13:52→17:18)
--- NOTE | 2018-04-24 13:52 | ED.PDOC ---
General ED Provider: Dr. STEWART MILES MD Chief Complaint: Fever Stated Complaint: i think i have osteomylitis, my hips hurt and i hva e afever Time Seen by Physician: 13:42 Mode of Arrival: Wheelchair Information Source: Patient Exam Limitations: Physical impairment Primary Care Provider: SHANNON LEMOS Nursing and Triage Documentation Reviewed and Agree: Yes Does patient meet sepsis criteria?: Yes If yes, has appropriate treatment been initiated?: Yes System Inflammatory Response Syndrome: Temp 101F or Greater, Pulse >90 BPM Sepsis Protocol: For patient's 13 years and over: Temp is 96.8 and below OR 101 and greater Pulse >90 BPM Resp >20/minute Acutely Altered Mental Status Are patient's symptoms suggestive of a new infection, such as: -Pneumonia -Skin, Soft Tissue -Endocarditis -UTI -Bone, Joint Infection -Implantable Device -Acute Abdominal Infection -Wound Infection -Meningitis -Blood Stream Catheter Infection -Unknown Review of Systems - Review Of Systems Constitutional: Reports: No symptoms, Fever Eyes: Reports: No symptoms Ears, Nose, Mouth, Throat: Reports: No symptoms Respiratory: Reports: No symptoms Cardiac: Reports: No symptoms GI: Reports: No symptoms : Reports: No symptoms Musculoskeletal: Reports: No symptoms, Joint pain (bilateral hips) Skin: Reports: No symptoms Neurological: Reports: No symptoms Endocrine: Reports: No symptoms Hematologic/Lymphatic: Reports: No symptoms All Other Systems: Reviewed and Negative Past Medical History - Past Medical History Previously Healthy: Yes Endocrine: Reports: None Cardiovascular: Reports: None Respiratory: Reports: None Hematological: Reports: None Gastrointestinal: Reports: GERD, Other (C DIFF POSTIVE IN THE PAST) Genitourinary: Reports: Kidney stones Neuro/Psych: Reports: None Musculoskeletal: Reports: None Cancer: Reports: None Other Pertinent Past Medical History: osteopenia, Osteoporosis, Neurogenic bladder with chronic indwelling cath - Surgical History General Surgical History: Reports: Orthopedic (Bilateral AKA, left hip), Back Surgery, Other (Skin grafts ) - Family History Family History: Reports: None - Social History Smoking Status: Current every day smoker, Heavy tobacco smoker Hx Substance Use: No Alcohol Screening: None Physical Exam - Physical Exam Appearance: Well-appearing, No pain distress, Well-nourished Ill-appearing: Mild Pain Distress: Mild Eyes: NISA, EOMI, Conjunctiva clear ENT: Ears normal, Nose normal, Oropharynx normal Respiratory: Airway patent, Breath sounds clear, Breath sounds equal, Respirations nonlabored Cardiovascular: RRR, Pulses normal, No rub, No murmur GI/: Soft, Nontender, No masses, Bowel sounds normal, No Organomegaly Musculoskeletal: Normal strength, ROM intact, No edema, No calf tenderness Skin: Warm, Dry, Normal color Neurological: Sensation intact, Motor intact, Reflexes intact, Cranial nerves intact, Alert, Oriented Psychiatric: Affect appropriate, Mood appropriate Critical Care Note - Critical Care Note Total Time (mins): 0 Course - Course Hematology/Chemistry: 04/24/18 14:12 04/24/18 14:12 Orders, Labs, Meds: Lab Review 04/24/18 04/24/18 04/24/18 14:12 14:12 14:22 WBC 18.81 H RBC 3.19 L Hgb 6.8 L Hct 23.8 L MCV 74.6 L MCH 21.3 L MCHC 28.6 L RDW Coeff of Micha 15.5 H Plt Count 694 H Immature Gran % (Auto) 0.8 Neut % (Auto) 86.6 Lymph % (Auto) 6.1 L Jack % (Auto) 5.1 Eos % (Auto) 1.1 Baso % (Auto) 0.3 Immature Gran # (Auto) 0.2 Neut # (Auto) 16.3 H Lymph # (Auto) 1.1 Jack # (Auto) 1.0 Eos # (Auto) 0.2 Baso # (Auto) 0.1 Hypochromasia 2+ Anisocytosis 3+ Microcytosis 2+ Sodium 138.2 Potassium 3.41 L Chloride 104.0 Carbon Dioxide 23.6 Anion Gap 14.01 BUN 13.0 Creatinine 1.30 H Estimated GFR (MDRD) 63.00 BUN/Creatinine Ratio 10.00 Glucose 106.1 H Calcium 9.24 Stl Occult Blood (IFOB) Stool Occult Blood #2 Stool Occult Blood #3 Blood Type A POSITIVE 04/24/18 18:40 WBC RBC Hgb Hct MCV MCH MCHC RDW Coeff of Micha Plt Count Immature Gran % (Auto) Neut % (Auto) Lymph % (Auto) Jack % (Auto) Eos % (Auto) Baso % (Auto) Immature Gran # (Auto) Neut # (Auto) Lymph # (Auto) Jack # (Auto) Eos # (Auto) Baso # (Auto) Hypochromasia Anisocytosis Microcytosis Sodium Potassium Chloride Carbon Dioxide Anion Gap BUN Creatinine Estimated GFR (MDRD) BUN/Creatinine Ratio Glucose Calcium Stl Occult Blood (IFOB) Negative Stool Occult Blood #2 Pending Stool Occult Blood #3 Pending Blood Type Orders Category Date Time Status IV [ED IV/MEDIPORT/POWERPORT] .ONCE EMERGENCY 04/24/18 13:52 Active BLOOD CULTURE (ED ONLY) Stat LAB 04/24/18 14:12 Received BMP [BASIC METABOLIC PANEL] Stat LAB 04/24/18 14:12 Completed CBC W/ AUTO DIFF Stat LAB 04/24/18 14:12 Completed GUAIAC [OCCULT BLOOD, STOOL] Stat LAB 04/24/18 18:40 Results RBC MORPHOLOGY Stat LAB 04/24/18 14:12 Completed 0.9 % Sodium Chloride [Saline Flush] MEDS 04/24/18 13:52 Active 1 syr IVF PRN PRN Carisoprodol [Soma] MEDS 04/24/18 15:33 Discontinued 350 mg PO ONCE STA Ceftriaxone Sodium [Rocephin] MEDS 04/24/18 13:53 Discontinued 2 gm IM ONCE STA Ceftriaxone Sodium [Rocephin] 2 gm MEDS 04/24/18 14:38 Discontinued 0.9 % Sodium Chloride [Sodium Chloride] 50 ml IV ONCE Ketorolac Tromethamine [Toradol] MEDS 04/24/18 14:30 Discontinued 30 mg .ROUTE .STK-MED ONE Ketorolac Tromethamine [Toradol] MEDS 04/24/18 14:19 Discontinued 60 mg IVP ONCE STA Lidocaine HCl/Pf [Lidocaine HCl 1% Sdv] MEDS 04/24/18 13:53 Discontinued 4.2 ml IM ONCE STA Ringers Lactated Solution [Lactated Ringers] 1,000 ml MEDS 04/24/18 17:18 Active IV 250 mls/hr Ringers Lactated Solution [Lactated Ringers] 1,000 ml MEDS 04/24/18 13:52 Discontinued IV BOLUS Medications Generic Name Dose Route Start Last Admin Trade Name Freq PRN Reason Stop Dose Admin Lactated Ringer's 1,000 mls @ 250 mls/hr 04/24/18 17:18 04/24/18 17:27 Lactated Ringers IV 04/24/18 21:17 250 mls/hr .Q4H STA Administration Sodium Chloride 1 syr 04/24/18 13:52 04/24/18 14:26 Saline Flush IVF 1 syr PRN PRN Administration To flush IV Discontinued Medications Generic Name Dose Route Start Last Admin Trade Name Freq PRN Reason Stop Dose Admin Carisoprodol 350 mg 04/24/18 15:33 04/24/18 15:47 Soma PO 04/24/18 15:34 350 mg ONCE STA Administration Ceftriaxone Sodium 2 gm 04/24/18 13:53 04/24/18 14:37 Rocephin IM 04/24/18 13:54 Not Given ONCE STA Lactated Ringer's 1,000 mls @ 500 mls/hr 04/24/18 13:52 04/24/18 14:26 Lactated Ringers IV 04/24/18 15:51 500 mls/hr BOLUS STA Administration Ceftriaxone Sodium 2 gm/ 50 mls @ 50 mls/hr 04/24/18 14:38 04/24/18 14:41 Sodium Chloride IV 04/24/18 15:37 50 mls/hr ONCE STA Administration Ketorolac Tromethamine 60 mg 04/24/18 14:19 04/24/18 14:34 Toradol IVP 04/24/18 14:20 Not Given ONCE STA Lidocaine HCl 4.2 ml 04/24/18 13:53 04/24/18 14:37 Lidocaine Hcl 1% Sdv IM 04/24/18 13:54 Not Given ONCE STA Vital Signs: Temp Pulse Resp BP Pulse Ox 04/24/18 18:46 98.1 F 70 18 96/54 L 100 04/24/18 17:50 98.5 F 04/24/18 13:24 101.3 F H 122 H 20 131/67 100 Departure - Departure Time of Disposition: 19:15 Disposition: DISCH/TSF INST NOT DEFINED Discharge Problem: Sepsis Allergies/Adverse Reactions: Allergies morphine Adverse Reaction (Intermediate, Verified 02/12/18 23:40) Hives vancomycin Adverse Reaction (Intermediate, Verified 04/24/18 15:07) Itching ADVERSE REATION: Received Vanc 1g/250ml. Started at 125ml/hr. Patient had Red Man's Syndrome. We slowed down to 62ml/hr and patient tolerated fine. If he needs Vanc---RUN SLOWLY! -Swati Fragoso, PharmD codeine Adverse Reaction (Verified 02/12/18 23:40) Hives paroxetine HCl [From Paxil] Adverse Reaction (Verified 02/12/18 23:40) Difficulty Swallowing UNABLE TO ANSWER/ARMS DRAW IN/UNABLE TO SWALLOW Home Medications: Ambulatory Orders Ibuprofen 600 mg PO Q6HR PRN 02/12/18
[2018-04-24] MEDS ORDERED: ROCEPHIN IM STA (13:53)
[2018-04-24] MEDS ORDERED: LIDOCAINE HCL 1% SDV IM STA (13:53)
[2018-04-24] MEDS ORDERED: TORADOL IVP STA (14:19)
[2018-04-24] MEDS ORDERED: TORADOL ONE (14:30)
[2018-04-24] MEDS ORDERED: ROCEPHIN 2 GM in SODIUM CHLORIDE 50 ML IV STA (14:38)
[2018-04-24] MEDS ORDERED: SOMA PO STA (15:33)
[2018-04-24 18:47] VITALS: BP 96/54; TEMP 98.1
== END 2018-04-24 19:58 | disposition short-term general hospital (02) ==
LOC: ED 13:15
DX: R50.9 Fever, unspecified (principal); M25.552 Pain in left hip; M25.551 Pain in right hip; Z72.0 Tobacco use; A41.9 Sepsis, unspecified organism
CPT/HCPCS: 36415; 80048; 82272; 85008; 85025; 87040; 87502; 93005; 93010; 96361; 96365; 96375; 99285

== ENCOUNTER 2018-04-24 20:06 | Outpatient (CLI) ==
[2018-04-24 13:31] VITALS: BMI 36.1
== END 2018-04-24 20:32 | disposition short-term general hospital (02) ==
LOC: AMBL 20:06
PROVIDERS: ATTEND Family Medicine
DX: A41.9 Sepsis, unspecified organism (principal); D64.9 Anemia, unspecified; R50.9 Fever, unspecified; R00.0 Tachycardia, unspecified; M54.5 Low back pain; G82.20 Paraplegia, unspecified; Z89.512 Acquired absence of left leg below knee; Z89.511 Acquired absence of right leg below knee; Z93.3 Colostomy status

== ENCOUNTER 2018-05-08 21:45 | Emergency (ER) ==
[2018-05-08 21:56] VITALS: TEMP 99.6; BMI 31.8
[2018-05-08] MEDS ORDERED: PERCOCET 7.5-325 PO STA (22:55)
--- NOTE | 2018-05-08 23:16 | CT ---
EXAM: CT pelvis without intravenous contrast 05/08/2018. Sagittal and coronal reformatted images ob tained HISTORY: Perineal pain. Ulceration. Bilateral amputee with paraplegia. COMPARISON: 09/28/2017 FINDINGS: Left lower quadrant ostomy. No findings of bowel obstruction. No free air or free fluid within the pelvis. Vanegas catheter balloon appears similar to the comparison study and is inflated at the level of the prostate gland. The urinary bladder is decompressed. Partially visualized postoperative changes at the posterior aspect of the lower lumbar spine. There is a new area of soft tissue ulceration within the right lower pelvis. This extends inferior t o the right pubis and acetabulum. There is no soft tissue fluid collection or abscess. Increased so ft tissue calcification inferior to the right pubis. Lucency and sclerosis at the level of the right acetabulum and pubis. Osteomyelitis is not excluded There is worsening of joint space at the level of the right hip. Worsening degenerative findings at the level of the articular surface of the acetabulum and femoral head. Septic joint not excluded. IMPRESSION: 1. Soft tissue ulceration within the right pelvis as discussed above. This extends along the unders urface of the right hip and pelvis. 2. No soft tissue abscess. 3. Increased soft tissue calcification. Mixed lucency and sclerosis within the right femoral head a nd acetabulum. Osteomyelitis not excluded 4. Worsening of joint space narrowing within the right hip. Worsening degenerative changes of the r ight acetabulum and femoral head. Septic joint not excluded. 5. Inflation of the Vanegas catheter balloon at the level of the prostate gland which appears stable a s compared to the prior study. 6. Additional findings as above.
--- NOTE | 2018-05-08 23:39 | ED.PDOC ---
General ED Provider: Dr. STEWART PATTERSON-ER Chief Complaint: Palpitations Stated Complaint: i think i am getting septic again Time Seen by Physician: 21:50 Mode of Arrival: Wheelchair Information Source: Patient, Family Exam Limitations: No limitations Primary Care Provider: SHANNON LEMOS Nursing and Triage Documentation Reviewed and Agree: Yes Does patient meet sepsis criteria?: No System Inflammatory Response Syndrome: Not Applicable Sepsis Protocol: For patient's 13 years and over: Temp is 96.8 and below OR 101 and greater Pulse >90 BPM Resp >20/minute Acutely Altered Mental Status Are patient's symptoms suggestive of a new infection, such as: -Pneumonia -Skin, Soft Tissue -Endocarditis -UTI -Bone, Joint Infection -Implantable Device -Acute Abdominal Infection -Wound Infection -Meningitis -Blood Stream Catheter Infection -Unknown Miscellaneous Complaint Exam - Febrile Illness/Adult Complaint/Exam Onset/Duration: 3 days Symptoms Are: Still present Initial Severity: Mild Current Severity: Mild Associated Signs and Symptoms: Denies: Headache, Fluid intake, Short of air, Cough, Sore throat, Nausea, Vomiting, Chills, Diaphoresis, Dysuria, Arthralgia, Stiff neck, Myalgia, Rash, Altered mental status Serious Bacterial Infection Risk Factors: Reports: Vanegas catheter Current Antibiotic Use: No Patient Advised to Stop Smoking: No Review of Systems - Review Of Systems Constitutional: Reports: No symptoms Eyes: Reports: No symptoms Ears, Nose, Mouth, Throat: Reports: No symptoms Respiratory: Reports: No symptoms Cardiac: Reports: Palpitations GI: Reports: No symptoms : Reports: No symptoms Musculoskeletal: Reports: No symptoms Skin: Reports: No symptoms Neurological: Reports: No symptoms Endocrine: Reports: No symptoms Hematologic/Lymphatic: Reports: No symptoms All Other Systems: Reviewed and Negative Past Medical History - Past Medical History Previously Healthy: Yes Endocrine: Reports: None Cardiovascular: Reports: None Respiratory: Reports: None Hematological: Reports: None Gastrointestinal: Reports: GERD, Other (C DIFF POSTIVE IN THE PAST) Genitourinary: Reports: Kidney stones Neuro/Psych: Reports: None Musculoskeletal: Reports: None Cancer: Reports: None Other Pertinent Past Medical History: osteopenia, Osteoporosis, Neurogenic bladder with chronic indwelling cath - Surgical History General Surgical History: Reports: Orthopedic (Bilateral AKA, left hip), Back Surgery, Other (Skin grafts ) - Family History Family History: Reports: None - Social History Smoking Status: Current every day smoker, Heavy tobacco smoker Hx Substance Use: No Alcohol Screening: None - Immunizations Tetanus Shot up to Date: Yes Physical Exam - Physical Exam Appearance: Well-appearing, No pain distress, Well-nourished Eyes: NISA, EOMI, Conjunctiva clear ENT: Ears normal, Nose normal, Oropharynx normal Neck: Supple Respiratory: Airway patent, Breath sounds clear, Breath sounds equal, Respirations nonlabored Cardiovascular: Tachycardia GI/: Soft, Nontender, No masses, Bowel sounds normal, No Organomegaly Musculoskeletal: Normal strength, ROM intact, No edema, No calf tenderness Skin: Warm, Dry, Normal color (notes ) Neurological: Sensation intact, Motor intact, Reflexes intact, Cranial nerves intact, Alert, Oriented Psychiatric: Affect appropriate, Mood appropriate Interpretation - Radiology Interpretation Radiology Interpretation By: Radiologist Radiology Results: Positive Exam Interpreted: CT Scan - EKG Interpretation Time of EKG #1: 23:39 Rate: Tachy Rhythm: Sinus Ectopy: None [place]: NL ST Segment: Normal Critical Care Note - Critical Care Note Total Time (mins): 0 Course - Course Hematology/Chemistry: 05/08/18 22:13 05/08/18 22:13 Orders, Labs, Meds: Lab Review 05/08/18 05/08/18 05/08/18 22:13 22:13 22:13 WBC 13.35 H RBC 3.34 L Hgb 8.1 L Hct 27.5 L MCV 82.3 MCH 24.3 L MCHC 29.5 L RDW Coeff of Micha 20.0 H Plt Count 571 H Immature Gran % (Auto) 0.4 Neut % (Auto) 71.7 Lymph % (Auto) 17.1 Story % (Auto) 8.4 Eos % (Auto) 1.9 Baso % (Auto) 0.5 Immature Gran # (Auto) 0.1 Neut # (Auto) 9.6 H Lymph # (Auto) 2.3 Story # (Auto) 1.1 Eos # (Auto) 0.3 Baso # (Auto) 0.1 Sodium 142.4 Potassium 4.03 Chloride 108.9 H Carbon Dioxide 25.0 Anion Gap 12.53 BUN 27.0 H Creatinine 1.37 H Estimated GFR (MDRD) 59.00 BUN/Creatinine Ratio 19.70 Glucose 93.2 Lactic Acid Calcium 8.84 Total Bilirubin 0.15 L AST 24.7 ALT 12.1 Alkaline Phosphatase 88.0 Total Creatine Kinase < 20.0 L Troponin I < 0.012 Total Protein 7.69 Albumin 3.47 L Globulin 4.22 Albumin/Globulin Ratio 0.82 Procalcitonin TSH Pending Free T4 05/08/18 05/08/18 05/08/18 22:13 22:13 22:13 WBC RBC Hgb Hct MCV MCH MCHC RDW Coeff of Micha Plt Count Immature Gran % (Auto) Neut % (Auto) Lymph % (Auto) Story % (Auto) Eos % (Auto) Baso % (Auto) Immature Gran # (Auto) Neut # (Auto) Lymph # (Auto) Story # (Auto) Eos # (Auto) Baso # (Auto) Sodium Potassium Chloride Carbon Dioxide Anion Gap BUN Creatinine Estimated GFR (MDRD) BUN/Creatinine Ratio Glucose Lactic Acid 0.70 Calcium Total Bilirubin AST ALT Alkaline Phosphatase Total Creatine Kinase Troponin I Total Protein Albumin Globulin Albumin/Globulin Ratio Procalcitonin 0.07 TSH Free T4 1.08 Orders Category Date Time Status EKG-(ED ONLY) Stat CARDIO 05/08/18 22:02 Completed 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 .ONCE EMERGENCY 05/08/18 22:02 Active BLOOD CULTURE (ED ONLY) Stat LAB 05/08/18 22:38 Received CBC W/ AUTO DIFF Stat LAB 05/08/18 22:13 Completed COMPREHENSIVE METABOLIC PANEL Stat LAB 05/08/18 22:13 Completed CREATINE KINASE Stat LAB 05/08/18 22:13 Results FREE T4 (FREE THYROXINE) Stat LAB 05/08/18 22:13 Completed LACTIC ACID Stat LAB 05/08/18 22:13 Completed PROCALCITONIN Stat LAB 05/08/18 22:13 Completed TROPONIN I Stat LAB 05/08/18 22:13 Results TSH [THYROID STIMULATING HORMONE] Stat LAB 05/08/18 22:13 Results UA [URINALYSIS C & S IF INDICATED] Stat LAB 05/08/18 23:25 Ordered Oxycodone-Acetaminophe 7.5-325 [Percocet 7.5-325] MEDS 05/08/18 22:55 Discontinued 1 tab PO ONCE STA CT PELVIS W/O CONTRAST Stat RADS 05/08/18 22:04 Completed CXR [CHEST, 1V AP ONLY] Stat RADS 05/08/18 22:06 Taken Medications Discontinued Medications Generic Name Dose Route Start Last Admin Trade Name Victorina PRN Reason Stop Dose Admin Oxycodone/Acetaminophen 1 tab 05/08/18 22:55 05/08/18 22:59 Percocet 7.5-325 PO 05/08/18 22:56 1 tab ONCE STA Administration Vital Signs: Temp Pulse Resp BP Pulse Ox 05/08/18 23:39 97 H 21 116/61 97 05/08/18 21:46 99.6 F 101 H 18 107/65 98 Departure - Departure Time of Disposition: 23:39 Disposition: TSF SHORT-TRM HOSP Discharge Problem: Palpitations Instructions: Heart Palpitations (ED) Condition: Good Pt referred to PMD for follow-up: Yes IPMP verified?: No Allergies/Adverse Reactions: Allergies morphine Adverse Reaction (Intermediate, Verified 05/08/18 21:57) Hives vancomycin Adverse Reaction (Intermediate, Verified 05/08/18 21:57) Itching ADVERSE REATION: Received Vanc 1g/250ml. Started at 125ml/hr. Patient had Red Man's Syndrome. We slowed down to 62ml/hr and patient tolerated fine. If he needs Vanc---RUN SLOWLY! -Swati Fragoso, PharmD codeine Adverse Reaction (Verified 05/08/18 21:57) Hives paroxetine HCl [From Paxil] Adverse Reaction (Verified 05/08/18 21:57) Difficulty Swallowing UNABLE TO ANSWER/ARMS DRAW IN/UNABLE TO SWALLOW Home Medications: Ambulatory Orders Ibuprofen 600 mg PO Q6HR PRN 02/12/18 Transfer Form Completed: Yes Disposition Discussed With: Patient
[2018-05-08 23:41] VITALS: BP 116/61
--- NOTE | 2018-05-09 07:45 | DI ---
EXAM: Chest one view HISTORY: Elevated heart rate COMPARISON: 11/29/2018 TECHNIQUE: Single view of the chest was performed FINDINGS: The lungs are clear. There is no pleural effusion or pneumothorax. The heart is normal i n size. The mediastinal contour is normal. There are no acute abnormalities of the bones. Lumbar sp inal fusion hardware is incompletely imaged. IMPRESSION: No acute cardiopulmonary process.
== END 2018-05-09 00:25 | disposition short-term general hospital (02) ==
LOC: ED 21:45
DX: R00.2 Palpitations (principal); F17.210 Nicotine dependence, cigarettes, uncomplicated; Z96.0 Presence of urogenital implants
CPT/HCPCS: 36415; 80053; 81001; 82550; 83605; 84145; 84439; 84443; 84484; 85025; 87040; 87086; 87186; 93005; 93010; 99285

== ENCOUNTER 2018-05-09 00:33 | Outpatient (CLI) ==
[2018-05-08 21:56] VITALS: BMI 31.8
== END 2018-05-09 00:56 | disposition short-term general hospital (02) ==
LOC: AMBL 00:33
PROVIDERS: ATTEND Family Medicine
DX: R00.2 Palpitations (principal); L89.329 Pressure ulcer of left buttock, unspecified stage

== ENCOUNTER 2018-06-12 08:54 | Outpatient (CLI) | END 2018-06-12 08:55 | disposition home or self-care (01) | LOC: OPMED 08:54 | PROVIDERS: ATTEND Internal Medicine | DX: N12 Tubulo-interstitial nephritis, not specified as acute or chronic (principal); L89.154 Pressure ulcer of sacral region, stage 4 | CPT/HCPCS: 36415; 80053; 82550; 85025; 85027 ==

== ENCOUNTER 2018-06-26 08:40 | Outpatient (CLI) | END 2018-06-26 08:41 | disposition home or self-care (01) | LOC: WOUND 08:40 | PROVIDERS: ATTEND Nurse Practitioner Family | DX: L89.322 Pressure ulcer of left buttock, stage 2 (principal); L89.893 Pressure ulcer of other site, stage 3; L02.31 Cutaneous abscess of buttock; G82.20 Paraplegia, unspecified; D64.9 Anemia, unspecified; B99.9 Unspecified infectious disease | CPT/HCPCS: 36415; 80053; 82550; 85027; 97597; 97598 ==

== ENCOUNTER 2018-06-28 09:41 | Outpatient (CLI) | END 2018-06-28 09:42 | disposition home or self-care (01) | LOC: RHC-LAB 09:41 | PROVIDERS: ATTEND Family Medicine | DX: R89.2 Abnormal level of other drugs, medicaments and biological substances in specimens from other organs, systems and tissues (principal); Z79.891 Long term (current) use of opiate analgesic | CPT/HCPCS: 80306 ==

== ENCOUNTER 2018-07-10 08:40 | Outpatient (CLI) ==
[2018-07-10 10:20] VITALS: BP 129/73; TEMP 98.9
[2018-07-10] MEDS ORDERED: INVANZ IM STA (10:24)
[2018-07-10] MEDS ORDERED: LIDOCAINE HCL 1% SDV IM STA (10:24)
== END 2018-07-10 08:41 | disposition home or self-care (01) ==
LOC: WOUND 08:40 → OPMED 08:41
PROVIDERS: ATTEND Nurse Practitioner Family
DX: L89.322 Pressure ulcer of left buttock, stage 2 (principal); L89.893 Pressure ulcer of other site, stage 3; L02.31 Cutaneous abscess of buttock; G82.20 Paraplegia, unspecified; D64.9 Anemia, unspecified; B99.9 Unspecified infectious disease; S31.819D Unspecified open wound of right buttock, subsequent encounter
CPT/HCPCS: 36415; 83605; 84145; 85027; 87040; 87070; 87186; 96372; 99213; 99215

== ENCOUNTER 2018-11-24 23:29 | Observation (INO) ==
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
[2018-11-25] MEDS ORDERED: DILAUDID 1 MG/ML SYRINGE IM STA ×2 (00:11→02:18)
--- NOTE | 2018-11-25 01:12 | CT ---
EXAM: CT scan abdomen pelvis without contrast HISTORY: Pelvic pain COMPARISON: CT scan abdomen pelvis 10/12/2018 FINDINGS: Contiguous axial images obtained through the abdomen pelvis without contrast utilizing 3-m m collimation. Sagittal and coronal reconstructions were imaged and reviewed. The visualized lung b ases are clear. The gallbladder is distended without gallstones. The liver pancreas spleen and adre nal glands have normal unenhanced CT appearance. There are bilateral renal cysts. There is stable t hinning of the left renal cortex with scarring and calcifications lower pole.. Atherosclerotic bruce es are seen involving the aorta without aneurysm formation there is a left lower quadrant ostomy site Urinary bladder is decompressed with Vanegas catheter.. There is no free fluid.. Redemonstrated is a large right decubitus ulcer with chronic right ischial osteomyelitis. Intramedullary nina on the rig ht . Prior right hip dislocation IMPRESSION: Mildly distended gallbladder. Stable cortical thinning and scarring left kidney. Stable left lower quadrant ostomy. Stable appearing large right-sided decubitus with adjacent chronic osteomyelitis
[2018-11-25] MEDS ORDERED: ROCEPHIN 1 GM VIAL IM STA (01:19)
[2018-11-25] MEDS ORDERED: LIDOCAINE HCL 1% SDV IM STA (01:19)
[2018-11-25] MEDS ORDERED: DILAUDID 0.5 MG/0.5 ML SYRINGE IM STA (04:18)
[2018-11-25] MEDS ORDERED: MOTRIN PO PRN (05:38)
[2018-11-25 06:18] VITALS: BMI 29.7
[2018-11-25] MEDS: DILAUDID 1 MG/ML SYRINGE IVP PRN ×5 (07:51→19:26)
[2018-11-25] MEDS: NYSTATIN ORAL SUSP PO SCH ×5 (07:59→20:21)
[2018-11-25] MEDS ORDERED: OXYCODONE 30 MG PO SCH (09:00)
[2018-11-25] MEDS: OXYCONTIN PO SCH ×4 (09:27→17:40)
[2018-11-25] MEDS: LEVAQUIN 500 MG/100 ML D5W 500 MG/100 ML BAG IV SCH (09:29)
[2018-11-25] MEDS: LOVENOX SUBCUT SCH (09:36)
[2018-11-25] MEDS: CLEOCIN 600 MG in SODIUM CHLORIDE 50 ML IV SCH ×2 (13:45→20:21)
[2018-11-25] MEDS: VITAMIN C PO SCH (20:21)
[2018-11-25] MEDS: ZINC-220 PO SCH (20:21)
[2018-11-25] MEDS: ELAVIL PO SCH (20:22)
[2018-11-25] MEDS: SODIUM HYPOCHLORITE TP SCH (20:24)
[2018-11-26] MEDS: OXYCONTIN PO SCH ×8 (00:38→23:39)
[2018-11-26] MEDS: DILAUDID 1 MG/ML SYRINGE IVP PRN ×10 (01:05→22:15)
[2018-11-26] MEDS: CLEOCIN 600 MG in SODIUM CHLORIDE 50 ML IV SCH ×3 (04:57→20:14)
[2018-11-26] MEDS ORDERED: K-DUR PO STA (06:07)
[2018-11-26] MEDS: ZINC-220 PO SCH ×2 (08:28→20:13)
[2018-11-26] MEDS: NYSTATIN ORAL SUSP PO SCH ×4 (08:28→20:13)
[2018-11-26] MEDS: LEVAQUIN 500 MG/100 ML D5W 500 MG/100 ML BAG IV SCH (08:28)
[2018-11-26] MEDS: VITAMIN C PO SCH ×2 (08:29→20:13)
[2018-11-26] MEDS: LOVENOX SUBCUT SCH (08:30)
[2018-11-26] MEDS: SODIUM HYPOCHLORITE TP SCH ×2 (08:30→22:16)
[2018-11-26] MEDS ORDERED: K-DUR PO ONE (12:00)
[2018-11-26] MEDS: ELAVIL PO SCH (20:13)
[2018-11-27] MEDS: DILAUDID 1 MG/ML SYRINGE IVP PRN ×4 (02:17→08:47)
[2018-11-27] MEDS: CLEOCIN 600 MG in SODIUM CHLORIDE 50 ML IV SCH ×2 (04:46→15:51)
[2018-11-27] MEDS: OXYCONTIN PO SCH ×4 (08:37→16:02)
[2018-11-27] MEDS: ZINC-220 PO SCH ×2 (08:37→20:26)
[2018-11-27] MEDS: LEVAQUIN 500 MG/100 ML D5W 500 MG/100 ML BAG IV SCH (08:37)
[2018-11-27] MEDS: VITAMIN C PO SCH ×2 (08:40→20:26)
[2018-11-27] MEDS: NYSTATIN ORAL SUSP PO SCH ×4 (08:41→20:26)
[2018-11-27] MEDS: LOVENOX SUBCUT SCH (08:41)
[2018-11-27] MEDS: SODIUM HYPOCHLORITE TP SCH ×2 (08:42→20:27)
[2018-11-27] MEDS ORDERED: LEVAQUIN PO STA (14:48)
[2018-11-27] MEDS: DILAUDID 1 MG/ML SYRINGE IM PRN ×3 (15:01→23:14)
[2018-11-27] MEDS: ELAVIL PO SCH (20:26)
[2018-11-28] MEDS: DILAUDID 1 MG/ML SYRINGE IM PRN ×3 (03:21→11:31)
[2018-11-28] MEDS: OXYCONTIN PO SCH ×4 (03:24→08:46)
[2018-11-28] MEDS ORDERED: LEVAQUIN PO SCH (06:30)
[2018-11-28] MEDS: LOVENOX SUBCUT SCH (08:35)
[2018-11-28] MEDS: NYSTATIN ORAL SUSP PO SCH (08:45)
[2018-11-28] MEDS: ZINC-220 PO SCH (08:45)
[2018-11-28] MEDS: VITAMIN C PO SCH (08:46)
[2018-11-28] MEDS ORDERED: K-DUR PO STA (09:39)
[2018-11-28 09:56] VITALS: BP 105/62; TEMP 99.2
[2018-11-28] MEDS: SODIUM HYPOCHLORITE TP SCH (10:20)
[2018-11-28] MEDS ORDERED: SODIUM HYPOCHLORITE TP SCH (11:30)
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
--- NOTE | 2018-12-18 14:35 | DS ---
PRINCIPAL DIAGNOSIS: 1. Chronic UTI, Acinetobacter Baumannii complex 2. Chronic osteomyelitis 3. Decubitus ulcer DISCUSSION: Mr. 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 I am familiar with him from caring for him at [facility] and he was transferred to [place], [place] for multiple specialty care. He relayed since that time he has been to our Wound Care but was told that he can't come back because "they told me my problem was too sophisticated." He presents to the emergency department tonight with a new skin injury. Beneath the scrotum he had a rip or tear between the anus and the possible insertion of the scrotum. There was no trauma but this was overlying a decubitus ulcer (please see the enclosed photographs taken by the nursing staff. He also had nausea and vomiting and low grade fever. He was concerned that he had another urinary tract infection. We discussed transferring him however, he said that going to [place] or going to [place] or going to [place] was too hard and he didn't want to consider doing that. He was aware of a Wound Care in the [facility] and wanted to consider going there. However, because of his fever, the vomiting he appeared to require a hospitalization consideration for his chronic decubitus ulcer with suspected deep tissue injury and UTI. CLINICAL COURSE: He did very well with antibiotics. He did defervesce. The nausea and vomiting resolved. His urine culture grew out Acinetobacter Baumannii Complex susceptible to the antibiotics. Local Wound Care was initiated. Again Mr. Fowler had refused any consideration for transfer to a [place] such as [facility] or [place] making our possibility somewhat limited however he was agreeable to going to the Wound Care Center in [place], [place] and an appointment was set up for next week. Again, Mr. Fowler spent a lot of that time outside smoking cigarettes despite the nurses concern of poor wound healing with continued smoking. His pain controlled and at the time of discharge he afebrile. Again tolerating diet without nausea or vomiting. He is going to be discharged with antibiotics. He is going to followup with his PCP next week. He will also followup with Wound Care next week. Please see enclosed pictures of the wound that was taken by the nursing staff. TOO
== END 2018-11-28 12:00 | disposition home or self-care (01) ==
LOC: MEDSURG B 23:34 → ED 23:34 → MEDSURG B 11-25 05:50
PROVIDERS: ADMIT Family Medicine; ATTEND Family Medicine
DX: G82.50 Quadriplegia, unspecified; N50.82 Scrotal pain; M86.60 Other chronic osteomyelitis, unspecified site; S31.31XA Laceration without foreign body of scrotum and testes, initial encounter; L89.894 Pressure ulcer of other site, stage 4; N39.0 Urinary tract infection, site not specified